=== PATIENT | female | born 1995 | race Caucasian/White ===

== ENCOUNTER 2019-08-13 11:24 | Emergency (ER) | payer OTHER | END 2019-08-13 15:30 | disposition home or self-care (01) | LOC: FTE 15:30 | DX: S50.02XA Contusion of left elbow, initial encounter (principal); W23.0XXA Caught, crushed, jammed, or pinched between moving objects, initial encounter; Y92.9 Unspecified place or not applicable | CPT/HCPCS: 73080; 73080-LT; 73090; 73110-LT; 81025; 99283-25 ==